=== PATIENT | female | born 2000 | race Caucasian/White ===

== ENCOUNTER 2021-10-02 10:35 | Emergency (ER) | payer OTHER ==
[2021-10-02] MEDS ORDERED: Rabies Vaccine Human 2.5 UNITS VIAL ONE (12:11)
== END 2021-10-02 12:50 | disposition home or self-care (01) ==
LOC: CSHERS 10:35
DX: Z20.3 Contact with and (suspected) exposure to rabies (principal)
CPT/HCPCS: 90375; 90471; 90675; 96372

== ENCOUNTER → 2021-10-07 | Day surgery (SDC) | payer OTHER ==
[~2021-10-07] MED LIST: Rabies Vaccine Human 2.5 UNITS VIAL ONE
== END ==
LOC: CSHER/OP 06:26
PROVIDERS: ATTEND Emergency Medicine
DX: Z23 Encounter for immunization (principal)
CPT/HCPCS: 90675

== ENCOUNTER → 2021-10-13 | Day surgery (SDC) | payer OTHER | LOC: CSHER/OP 12:02 | PROVIDERS: ATTEND Pathology Anatomic Pathology & Clinical Pathology | DX: Z23 Encounter for immunization (principal) | CPT/HCPCS: 90471; 90675 ==